=== PATIENT | female | born 1975 | race African-American/Black ===

== ENCOUNTER 2017-04-27 17:00 | Observation (INO) ==
[2017-04-27] MEDS ORDERED: NITROGLYCERIN 2% OINT 1 INCH/GM PACK TOP STA (18:56)
[2017-04-27] MEDS ORDERED: ASPIRIN 325 MG TABLET PO STA (18:56)
[2017-04-27] MEDS ORDERED: MORPHINE 2 MG/1 ML SYRINGE IV STA (18:56)
[2017-04-27] MEDS ORDERED: ONDANSETRON 4 MG/2 ML VIAL IV STA (18:56)
[2017-04-27 19:04] LABS: Basophils % 0.3 % (0.0-0.8); Eosinophils # 0.1 10*3/uL (0.0-0.87); Eosinophils % 1.4 % (0.00-10.9); Hematocrit 36.8 VOL% (35.7-47.0); Hemoglobin 12.4 GM/DL (12.0-16.0); Immature Granulocytes % 0.3 %; Immature Granulocytes Absolute 0.03 #; Lymphocytes # 2.2 10*3/uL (1.4-4.0); Lymphocytes % 25.3 % (21.3-54.2); Mean Corpuscular HGB Conc 33.7 GM/DL (32-36); Mean Corpuscular Hemoglobin 31 PG (27-34); Mean Corpuscular Volume 90.6 FL (87-102); Mean Platelet Volume 8.9 FL (9.6-12.0); Monocytes # 0.7 10*3/uL (0.11-0.8); Monocytes % 7.6 % (1.7-12.7); Neutrophils # 5.7 10*3/uL (1.4-7.4); Neutrophils % 65.1 % (38.7-73.9); Platelet Count 282 T/CUMM (130-400); Red Blood Count 4.06 MC/CUMM (3.8-5.5); Red Cell Distribution Width 13.7 % (9.3-17.3); White Blood Count 8.8 T/CUMM (4-12)
[2017-04-27 19:16] LABS: INR 0.9
[2017-04-27 19:20] LABS: Albumin 4.1 G/DL (3.4-5.0); Bilirubin,Total 0.4 MG/DL (0.2-1.0); Calcium 8.9 MG/DL (8.5-10.1); Magnesium 1.9 MG/DL (1.8-2.4); Osmolality,Calculated 272.7 MOS/KG (273-304); Total Protein 7.4 G/DL (6.4-8.3)
[2017-04-27] MEDS ORDERED: ONDANSETRON 4 MG/2 ML VIAL ONE (19:21)
[2017-04-27] MEDS ORDERED: NITROGLYCERIN 2% OINT 1 INCH/GM PACK TOP ONE (19:21)
[2017-04-27] MEDS ORDERED: ASPIRIN 325 MG TABLET ONE (19:22)
[2017-04-27] MEDS ORDERED: MORPHINE 2 MG/1 ML SYRINGE ONE (19:22)
[2017-04-27 19:39] LABS: Amorphous Crystals,Urine Occasional /HPF (Few); Apearance,Urine Slightly Hazy (Clear); Bacteria,Urine Occasional /HPF (Few); Bilirubin,Urine Negative (Negative); Blood, Urine Small mg/dL (Negative); Glucose,Urine (UA) Negative (Negative); Ketones,Urine Negative (Negative); Mucus,Urine Occasional /LPF (Occasional); Nitrite,Urine Negative (Negative); Protein,Urine Negative; RBC,Urine 7 /HPF (0-4); Squamous Epithelial Cell,Urine Occasional /HPF (0-10); Urine Color Yellow (Yellow); Urine Specific Gravity 1.004 (1.001-1.035); Urine Urobilinogen < 2.0 EU/DL (0.2-1.0); WBC,Urine 52 /HPF (0-6)
[2017-04-27] MEDS ORDERED: cefTRIAXone 1,000 MG in SODIUM CHLORIDE 0.9% 100 ML IV STA (21:06)
[2017-04-27] MEDS ORDERED: ENOXAPARIN 100 MG/ML SYRINGE SUBCUT STA (21:14)
[2017-04-27] MEDS ORDERED: ENOXAPARIN 100 MG/ML SYRINGE SUBCUT ONE (21:20)
[2017-04-27] MEDS ORDERED: cefTRIAXone 1,000 MG VIAL ONE (21:20)
[2017-04-27] MEDS ORDERED: MORPHINE 2 MG/1 ML SYRINGE IV PRN (21:29)
[2017-04-27] MEDS ORDERED: NITROGLYCERIN SL 0.4 MG TABLET SL PRN (21:35)
[2017-04-28 04:43] LABS: Basophils % 0.4 % (0.0-0.8); Eosinophils # 0.1 10*3/uL (0.0-0.87); Eosinophils % 1.2 % (0.00-10.9); Hemoglobin 11.7 GM/DL (12.0-16.0); Immature Granulocytes % 0.4 %; Immature Granulocytes Absolute 0.03 #; Lymphocytes # 2.8 10*3/uL (1.4-4.0); Lymphocytes % 36.9 % (21.3-54.2); Mean Corpuscular HGB Conc 33.4 GM/DL (32-36); Mean Corpuscular Hemoglobin 31 PG (27-34); Mean Corpuscular Volume 91.1 FL (87-102); Monocytes # 0.7 10*3/uL (0.11-0.8); Monocytes % 8.8 % (1.7-12.7); Neutrophils # 3.9 10*3/uL (1.4-7.4); Neutrophils % 52.3 % (38.7-73.9); Platelet Count 260 T/CUMM (130-400); Red Blood Count 3.84 MC/CUMM (3.8-5.5); Red Cell Distribution Width 13.5 % (9.3-17.3); White Blood Count 7.5 T/CUMM (4-12)
[2017-04-28 05:44] LABS: Calcium 8.8 MG/DL (8.5-10.1); Osmolality,Calculated 278.3 MOS/KG (273-304); Potassium 3.9 MMOL/L (3.5-5.1); Risk Ratio 3.07; Thyroid Stimulating Hormone 1.36 uIU/ml (0.358-3.74); VLDL CHOLESTEROL 27.2 MG/DL
[2017-04-28 08:32] VITALS: BP 168/83
[2017-04-28] MEDS ORDERED: clonazePAM 0.5 MG TABLET PO SCH (09:00)
[2017-04-28] MEDS ORDERED: ASPIRIN EC 81 MG TABLET PO SCH (09:00)
[2017-04-28] MEDS ORDERED: PANTOPRAZOLE 40 MG TABLET PO SCH (09:00)
[2017-04-28] MEDS ORDERED: PROPRANOLOL 40 MG TABLET PO SCH (09:00)
[2017-04-28] MEDS ORDERED: CHLORTHALIDONE 25 MG TABLET PO SCH (17:00)
[2017-04-28] MEDS ORDERED: LOSARTAN 50 MG TABLET PO SCH (18:00)
[2017-04-28] MEDS ORDERED: cefTRIAXone 1,000 MG in SYRINGE 1 EACH IV SCH (18:00)
[2017-04-28] MEDS ORDERED: ENOXAPARIN 40 MG/0.4 ML SYRINGE SUBCUT SCH (21:00)
== END 2017-04-28 12:10 | disposition home or self-care (01) ==
LOC: N.ED 17:00 → N.EDINP 17:00 → N.TELES 22:01
PROVIDERS: ADMIT Internal Medicine; ATTEND Internal Medicine

== ENCOUNTER 2021-07-19 05:42 | Inpatient (IN) ==
[2021-07-12 16:45] LABS: Basophils % 0.2 % (0.0-0.8); Eosinophils % 0.1 % (0.00-10.9); Hematocrit 33.6 VOL% (35.7-47.0); Hemoglobin 10.4 GM/DL (12.0-16.0); Immature Granulocytes % 0.8 %; Immature Granulocytes Absolute 0.09 #; Lymphocytes # 1.8 10*3/uL (1.4-4.0); Lymphocytes % 15.1 % (21.3-54.2); Mean Corpuscular Volume 87.5 FL (87-102); Mean Platelet Volume 8.7 FL (9.6-12.0); Monocytes % 7.3 % (1.7-12.7); NRBC # 0.02 10*3/uL; Neutrophils % 76.5 % (38.7-73.9); Platelet Count 439 T/CUMM (130-400); Red Blood Count 3.84 MC/CUMM (3.8-5.5); Red Cell Distribution Width 18.6 % (9.3-17.3); White Blood Count 11.9 T/CUMM (4-12)
[2021-07-12 16:58] LABS: Mucus,Urine Many /LPF (Occasional); RBC,Urine 208 /HPF (0-4); Squamous Epithelial Cell,Urine Occasional /HPF (0-10)
[2021-07-12 16:59] LABS: Bilirubin,Urine Negative (Negative); Blood, Urine Large mg/dL (Negative); Glucose,Urine (UA) Negative (Negative); Ketones,Urine Trace mg/dL (Negative); Nitrite,Urine Negative (Negative); Protein,Urine 30 mg/dL (Negative); Urine Appearance Clear (Clear); Urine Color Yellow (Yellow); Urine Specific Gravity 1.025 (1.001-1.035); Urine Urobilinogen 0.2 eU/dL (<2.0)
[2021-07-12 17:05] LABS: PT Patient Result 10.7 SECS (10.5-12.0); Partial Thromboplastin Time 24.9 SECS (23.8-32.1)
[2021-07-12 17:13] LABS: Calcium 9.7 MG/DL (8.5-10.1); Osmolality,Calculated 273.5 MOS/KG (273-304); Potassium 4.3 MMOL/L (3.5-5.1)
[2021-07-19] MEDS ORDERED: fentaNYL 100 MCG/2 ML VIAL ONE (06:08)
[2021-07-19] MEDS ORDERED: MIDAZOLAM 2 MG/2 ML VIAL ONE (06:08)
[2021-07-19] MEDS ORDERED: ACETAMINOPHEN 500 MG TABLET PO ONE (06:40)
[2021-07-19] MEDS ORDERED: DIAZEPAM 5 MG TABLET PO ONE (06:40)
[2021-07-19] MEDS ORDERED: FAMOTIDINE 20 MG TABLET PO ONE (06:40)
[2021-07-19] MEDS ORDERED: LIDOCAINE 1% 5 ML VIAL ONE (06:42)
[2021-07-19] MEDS ORDERED: BUPIVACAINE MPF 0.25% 30 ML VIAL ONE (06:42)
[2021-07-19] MEDS ORDERED: DEXAMETHASONE 4 MG/1 ML VIAL ONE (06:42)
[2021-07-19] MEDS: LACTATED RINGERS 1,000 ML IV SCH ×2 (06:47→08:00)
[2021-07-19] MEDS ORDERED: LACTATED RINGERS 1,000 ML IV ONE (07:21)
[2021-07-19] MEDS ORDERED: ONDANSETRON 4 MG/2 ML VIAL ONE (07:21)
[2021-07-19] MEDS ORDERED: propofoL 200 MG/20 ML VIAL IV ONE (07:21)
[2021-07-19] MEDS ORDERED: SEVOFLURANE 1 UNIT/15 MINUTE INH ONE (07:21)
[2021-07-19] MEDS ORDERED: ROCURONIUM 50 MG/5 ML VIAL IV ONE (07:21)
[2021-07-19] MEDS ORDERED: LIDOCAINE 2% 5 ML VIAL ONE (07:21)
[2021-07-19] MEDS ORDERED: ceFAZolin 1,000 MG VIAL ONE (07:21)
[2021-07-19] MEDS ORDERED: GLYCOPYRROLATE 0.4 MG/2 ML VIAL ONE ×2 (07:47→08:15)
[2021-07-19] MEDS ORDERED: BENZOCAINE/MENTHOL LOZENGE 18/BOX PO PRN (09:07)
[2021-07-19] MEDS ORDERED: MAGNESIUM HYDROXIDE SUSP 30 ML UDCUP PO PRN (09:07)
[2021-07-19] MEDS ORDERED: BISACODYL 10 MG SUPP RECTAL PRN (09:07)
[2021-07-19] MEDS ORDERED: ONDANSETRON 4 MG/2 ML VIAL IV PRN ×2 (09:07→09:20)
[2021-07-19] MEDS ORDERED: ACETAMINOPHEN 325 MG TABLET PO PRN (09:07)
[2021-07-19] MEDS ORDERED: HYDROmorphone 1 MG/1 ML SYRINGE ONE (09:14)
[2021-07-19] MEDS: HYDROmorphone 1 MG/1 ML SYRINGE IV PRN ×2 (09:20→09:30)
[2021-07-19] MEDS ORDERED: LACTATED RINGERS 1,000 ML IV SCH (09:30)
[2021-07-19] MEDS: IBUPROFEN 800 MG TABLET PO PRN (16:53)
[2021-07-19] MEDS: oxyCODONE/ACETAMINOPHEN 5-325 MG TABLET PO PRN (20:20)
[2021-07-19] MEDS ORDERED: SIMETHICONE CHEW 80 MG TABLET PO PRN (22:36)
[2021-07-19] MEDS ORDERED: HYDROmorphone 1 MG/1 ML SYRINGE IV ONE (22:37)
[2021-07-19] MEDS ORDERED: KETOROLAC 30 MG/1 ML VIAL IV ONE (22:39)
[2021-07-20] MEDS: oxyCODONE/ACETAMINOPHEN 5-325 MG TABLET PO PRN ×3 (02:29→17:01)
[2021-07-20] MEDS: IBUPROFEN 800 MG TABLET PO PRN ×3 (04:39→21:12)
[2021-07-20 05:19] LABS: Basophils % 0.1 % (0.0-0.8); Hematocrit 23.4 VOL% (35.7-47.0); Hemoglobin 7.2 GM/DL (12.0-16.0); Immature Granulocytes % 0.5 %; Immature Granulocytes Absolute 0.07 #; Lymphocytes # 1.9 10*3/uL (1.4-4.0); Lymphocytes % 12.9 % (21.3-54.2); Mean Corpuscular HGB Conc 30.8 GM/DL (32-36); Mean Corpuscular Volume 91.8 FL (87-102); Mean Platelet Volume 8.7 FL (9.6-12.0); Monocytes % 11.3 % (1.7-12.7); Neutrophils % 75.2 % (38.7-73.9); Platelet Count 303 T/CUMM (130-400); Red Blood Count 2.55 MC/CUMM (3.8-5.5); Red Cell Distribution Width 19.8 % (9.3-17.3); White Blood Count 14.7 T/CUMM (4-12)
[2021-07-20] MEDS: FERROUS SULFATE 325 MG TABLET PO SCH ×2 (08:57→21:11)
[2021-07-20] MEDS: DOCUSATE SODIUM 100 MG CAPSULE PO PRN ×2 (08:57→21:11)
[2021-07-20] MEDS ORDERED: diphenhydrAMINE CAP 25 MG CAPSULE PO PRN (23:42)
[2021-07-21] MEDS: FERROUS SULFATE 325 MG TABLET PO SCH (08:08)
[2021-07-21] MEDS: DOCUSATE SODIUM 100 MG CAPSULE PO PRN (08:08)
[2021-07-21] MEDS: IBUPROFEN 800 MG TABLET PO PRN (08:09)
[2021-07-21] MEDS: oxyCODONE/ACETAMINOPHEN 5-325 MG TABLET PO PRN (08:11)
[2021-07-21 14:12] VITALS: BP 113/62
== END 2021-07-21 13:00 | disposition home or self-care (01) | DRG 743 ==
LOC: N.OR 05:42 → N.SDSINP 05:46 → N.OB 05:46 → EDSTATUS 07:30 → N.SDSINP 09:07 → N.OB 10:14
PROVIDERS: ADMIT Specialist; ATTEND Specialist